=== PATIENT | male | born 1975 | race Caucasian/White ===

== ENCOUNTER 2017-09-29 10:40 | Emergency (ER) | payer BC ==
[2017-09-29 11:40] LABS: Bilirubin Negative (Negative); Blood, Urine Negative (Negative); Clarity Clear (Clear); Glucose, Urine (Dipstick) Negative (Negative); Leukocyte Negative (Negative); Nitrite Negative (Negative); Protein, Urine (Dipstick) Negative (Neg-Trace); Specific Gravity, Urine 1.025 (1.005-1.030); Urobilinogen 0.2 mg/dL (0.2-1.0)
[2017-09-29] MEDS ORDERED: Ketorolac Tromethamine 60 MG/2 ML VIAL ONE (12:26)
--- NOTE | 2017-09-29 12:45 | ULT ---
TESTICULAR ULTRASOUND: Date: 09/29/17 HISTORY: Testicular pain. Difficulty urination. FINDINGS: Real-time imaging of the right and left testes performed. These show normal size testicles. The right testicle measures 4.1 cm and the left testicle measures 4.0 cm in size. No masses demonstrated. The epididymal regions appear unremarkable. DOPPLER EVALUATION WITH SPECTRAL ANALYSIS: Normal flow shown to both testes. In the region of the left inguinal canal is a round soft tissue density with some internal flow. It d oes not peristals, but given this location, it is possible that this is related to bowel, although it does not have an entirely typical appearance. CT may be helpful in further assessment. IMPRESSION: 1. No evidence of testicular torsion. 2. Soft tissue density which is in the region of the left inguinal canal, possibly related to a harrison ia. CT of the pelvis would probably be helpful in assessment, particularly if patient's pain is relat ed to this region. POS: [facility]
--- NOTE | 2017-09-29 14:15 | CT ---
CT OF PELVIS PERFORMED WITHOUT CONTRAST ENHANCEMENT: Date: 09/29/17 HISTORY: Soft tissue mass-like area noted in left inguinal region on recent ultrasound examination. COMPARISON: Ultrasound exam done earlier today. FINDINGS: The appendix is normal. The visualized intrapelvic contents appear normal. In the left inguinal regio n, I see no evidence of any hernia. The vessels in the left inguinal canal are slightly more prominen t as compared to the right. There is no evidence of any soft tissue mass. IMPRESSION: No evidence of inguinal hernia. There is some asymmetry to the vessels in the left inguinal canal as compared to the right, which may be the underlying explanation for the density seen, but certainly n o signs of hernia. POS: [facility]
[2017-10-02 03:17] LABS: Chlamydia by PCR Not Detected (NotDetected); GC by PCR Not Detected (NotDetected)
== END 2017-09-29 13:51 | disposition home or self-care (01) ==
LOC: SCSER 10:40
DX: N50.812 Left testicular pain (principal); R10.30 Lower abdominal pain, unspecified; F17.220 Nicotine dependence, chewing tobacco, uncomplicated; F90.9 Attention-deficit hyperactivity disorder, unspecified type; Z79.899 Other long term (current) drug therapy
CPT/HCPCS: 72192; 76870; 81003; 87491; 87591; 93976; 96372; J1885